=== PATIENT | male | born 2000 | race Caucasian/White ===

== ENCOUNTER → 2018-11-17 | Outpatient (CLI) | payer OTHER ==
--- NOTE | 2018-11-17 13:03 | REP ---
Left ankle four views : There is no fracture or dislocation. Mineralization and joint spaces are normal. There are no calcifications or foreign bodies. Impression: Negative left ankle . Electronically Signed by Teodoro Fuentes MD 11/17/2018 12:54 P
--- NOTE | 2018-11-17 13:04 | REP ---
Left foot four views : There is no fracture or dislocation. Mineralization and joint spaces are normal. There are no calcifications or foreign bodies. Impression: Negative left foot . Electronically Signed by Teodoro Fuentes MD 11/17/2018 12:55 P
== END ==
LOC: M LRY 11:58
PROVIDERS: ATTEND Nurse Practitioner Family
DX: S99.922A Unspecified injury of left foot, initial encounter (principal); S99.121A Salter-Harris Type II physeal fracture of right metatarsal, initial encounter for closed fracture; W18.30XA Fall on same level, unspecified, initial encounter; Y92.009 Unspecified place in unspecified non-institutional (private) residence as the place of occurrence of the external cause